=== PATIENT | male | born 1995 | race Caucasian/White ===

== ENCOUNTER 2018-10-09 20:44 | Emergency (ER) | payer BC ==
[2018-10-09 20:50] VITALS: BP 113/70
[2018-10-09] MEDS ORDERED: Fluorescein Sodium TOPICAL* 1 MG TEST STRIP OPHTHALMIC ONE (21:05)
[2018-10-09] MEDS ORDERED: Ciprofloxacin 0.3% OPTH.SOL* BTL RIGHT EYE ONE (21:32)
== END 2018-10-09 21:45 | disposition home or self-care (01) ==
LOC: UCEAST 20:44
DX: Z53.8 Procedure and treatment not carried out for other reasons (principal)
CPT/HCPCS: 99212; A9270-GY; G0463

== ENCOUNTER 2018-10-28 16:47 | Emergency (ER) | payer BC ==
[2018-10-28 16:55] VITALS: BP 96/72
--- NOTE | 2018-10-28 17:30 | UC ---
Complaint Male HPI - HPI Summary HPI Summary: He has had some burning dysuria with frequency for a couple of weeks. It's been gradually getting worse to the point where it's very frequent. He has had more than one heterosexual partner in the last month without protection. He says he has been recently tested for STI's and was negative as was his partner. He's had no systemic symptoms. - History of Current Complaint Chief Complaint: [facility] Stated Complaint: URINARY COMPLAINT Time Seen by Provider: 10/28/18 16:58 Hx Obtained From: Patient Onset/Duration: Gradual Onset Timing: Constant Severity Initially: Mild Severity Currently: Moderate Pain Intensity: 7 Location: Penis Character: Burning Aggravating Factor(s): Voiding - Allergies/Home Medications Allergies/Adverse Reactions: Allergies Allergy/AdvReac Type Severity Reaction Status Date / Time No Known Allergies Allergy Unverified 10/28/18 16:55 PMH/Surg Hx/FS Hx/Imm Hx Previously Healthy: Yes - Surgical History Surgical History: None - Family History Known Family History: Positive: Non-Contributory - Social History Alcohol Use: Occasionally Substance Use Type: Marijuana Substance Use Comment - Amount & Last Used: daily Smoking Status (MU): Never Smoked Tobacco Type: eCigarettes - Immunization History Vaccination Up to Date: Yes Review of Systems All Other Systems Reviewed And Are Negative: Yes Genitourinary: Positive: Dysuria, Frequency, Urgency Physical Exam - Summary Physical Exam Summary: He is nontoxic in appearance with stable vitals Triage Information Reviewed: Yes Appearance: Well-Appearing Vital Signs: Initial Vital Signs Temp 99 F 10/28/18 16:52 Pulse 72 10/28/18 16:52 Resp 16 10/28/18 16:52 BP 96/72 10/28/18 16:52 Pulse Ox 100 10/28/18 16:52 Vital Signs Reviewed: Yes ENT: Positive: Normal ENT inspection Abdominal Exam: Normal Complaint Male Course/Dx - Course Course Of Treatment: His urine is equivocal and has been sent for culture. I also sent for GC and chlamydia. I will treat with antibiotics here with a shot of Rocephin and Zithromax. - Differential Dx/Diagnosis Provider Diagnosis: Dysuria Discharge - Sign-Out/Discharge Documenting (check all that apply): Patient Departure All imaging exams completed and their final reports reviewed: No Studies - Discharge Plan Condition: Stable Disposition: HOME Patient Education Materials: Dysuria (ED) Referrals: Maira Gunn MD [Primary Care Provider] - Manuel Smith MD [Medical Doctor] - - Billing Disposition and Condition Condition: STABLE Disposition: Home
[2018-10-28] MEDS ORDERED: Lidocaine 1% MPF ** 5 ML VIAL IM ONE (17:41)
[2018-10-28] MEDS ORDERED: Azithromycin TAB* 250 MG PO ONE (17:41)
[2018-10-28] MEDS ORDERED: cefTRIAXone VIAL(*) 250 MG VIAL IM ONE (17:41)
== END 2018-10-28 17:55 | disposition home or self-care (01) ==
LOC: UCEAST 16:47
DX: R30.0 Dysuria (principal)
CPT/HCPCS: 81002; 87086; 87491; 87591; 96372; 99212; A9270-GY; G0463; J0696